=== PATIENT | female | born 1965 | race Caucasian/White ===

== ENCOUNTER 2018-04-30 21:35 | Emergency (ER) | payer OTHER ==
[2018-04-30] MEDS ORDERED: fentaNYL 100 MCG/2 ML INJ IVP ONE (21:45)
[2018-04-30] MEDS ORDERED: ONDANSETRON 4 MG/2 ML VIAL IVP ONE ×2 (21:45→22:45)
[2018-04-30] MEDS ORDERED: NS 1,000 ML IV ONE (21:45)
[2018-04-30] MEDS ORDERED: fentaNYL 100 MCG/2 ML INJ ONE (21:47)
[2018-04-30] MEDS ORDERED: IOPAMIDOL (ISOVUE-300) 100 ML BTL ONE (21:57)
--- NOTE | 2018-04-30 21:59 | EDPHY ---
H & P Stated Complaint: Severe LLQ abd pain. - Personal History Current Tetanus/Diphtheria Vaccine: Yes Current Tetanus Diphtheria and Acellular Pertussis (TDAP): Yes - Medical/Surgical History Hx Asthma: No Hx Chronic Respiratory Disease: No Hx Diabetes: No Hx Cardiac Disease: No Hx Renal Disease: No Hx Cirrhosis: No Hx Alcoholism: No Hx HIV/AIDS: No Hx Splenectomy or Spleen Trauma: No Other PMH: Uterine oblation, . - Social History Smoking Status: Never smoked Time Seen by Provider: 04/30/18 21:38 HPI/ROS: CHIEF COMPLAINT: Abdominal pain HISTORY OF PRESENT ILLNESS: 52-year-old female reports she was in her usual state of good health until approximately the 1 hr ago when she developed severe , crampy right lower quadrant discomfort. Patient states that felt like she needed to have a bowel movement. She did pass a small amount of stool with minimal relief of the discomfort. She is nauseous but has had no vomiting. She presents the emergency department at this time. Patient has had uterine ablation surgery secondary to fibroids but no abdominal surgeries. No history of ulcer disease, pancreatitis, cholecystitis, or kidney stones. Further history review of systems is limited secondary to the patient's clinical condition. REVIEW OF SYSTEMS: Review of systems is unobtainable from this patient because of clinical condition. Patient is quite uncomfortable, painting, and holding her abdomen. PAST MEDICAL HISTORY: Patient denies with the exception of uterine ablation. SOCIAL HISTORY: Here with her family. Nonsmoker. VITAL SIGNS Reviewed by me. GENERAL: Well-developed, well-nourished, uncomfortable, panting, holding her abdomen. HEENT: Atraumatic. Eyes: No icterus, no injection. Mouth: moist mucous membranes. No erythema or lesions. Neck: supple with no adenopathy. LUNGS: Clear to auscultation bilaterally, no wheezes, rhonchi or rales. CARDIAC: Regular rate and rhythm, no rubs, murmurs or gallops. ABDOMEN: Soft, maximal tenderness appears to be focused in the right mid and upper quadrant. Mild left upper quadrant tenderness which the patient thinks might be referred. No distension. No guarding. Positive bowel sounds. BACK: No CVA tenderness. EXTREMITIES: No trauma. No edema. Range of motion is normal throughout. NEURO: Alert and oriented, grossly nonfocal. SKIN: Warm and dry, no rash. PSYCHIATRIC: Normal mentation, no agitation. (Leslie Byrd) Constitutional: Initial Vital Signs Temperature (C) 36.7 C 04/30/18 21:40 Heart Rate 85 04/30/18 21:40 Respiratory Rate 16 04/30/18 21:40 Blood Pressure 168/119 H 04/30/18 21:40 O2 Sat (%) 97 04/30/18 21:40 O2 Delivery Mode Room Air Allergies/Adverse Reactions: latex Allergy (Verified 07/03/13 18:27) Home Medications: Medication Instructions Recorded Miscellaneous Medical Supply [NO 07/03/13 HOME MEDS] Medical Decision Making - Diagnostics Imaging Results: Imaging Impressions Abdomen X-Ray 04/30/18 21:45 Impression: Nonspecific bowel gas pattern. Abdomen CT 04/30/18 21:59 Impression: 1. Small amount of free fluid in the pelvis adjacent to the right ovary with associated cysts measuring up to 3.2 x 1.2 cm and calcification possibly representing a recently ruptured cyst. Recommend follow-up ultrasound imaging. 2. Calcification involving the left ovary from old granulomatous disease. 3. No CT evidence of appendicitis, abscess or bowel obstruction. Findings and recommendations discussed with Emergency Department physician, Leslie Byrd MD at 2250 hour, 04/30/2018. Final report concurs with initial preliminary interpretation. ED Course/Re-evaluation: KUB x-ray was obtained on arrival. This demonstrates a nonspecific bowel gas pattern. No free air or volvulus is noted. Patient IV placed and received fentanyl 75 mcg as well as Zofran IV. Patient received a L of normal saline. Urinalysis is negative for blood, or signs of infection. CT scan of abdomen pelvis was ordered. Reported to me from Dr. Lawanda carlson the is demonstrating no bowel obstruction, no volvulus, normal appendix, no hydronephrosis. Patient appears to have a right ovarian cyst which has ruptured with a enlarged right ovary at 4 cm with a small amount of fluid near the ovary. Of note the left ovary is calcified. Patient was reexamined. She is feeling better after her fentanyl but rates her pain 4/10. She tells me that she has not had a period for number of years although she does have approximately once a year spotting bloody discharge without significant vaginal bleeding. She has not seen a zoo caretaker for approximately 3 years. She tells me she has not had any hormonal testing to confirm a postmenopausal state. Given the fact that the patient sounds postmenopausal, an ultrasound was ordered to further evaluate for complex ovarian mass, ovarian carcinoma, ovarian torsion. Patient received Toradol 15 mg IV. Patient's care was assumed by Dr. Hartmann at 11:15 p.m., awaiting ultrasound. Patient understands the need for the ultrasound also understands that she may need to be admitted to the hospital depending on pain control and ultrasound findings. Patients course also discussed with Dr Lee, OB/ Hospice Office Coordinator. Pending ultrasound results and patients pain control, Dr Lee will see her in followup early next week. (Leslie Byrd) Differential Diagnosis: The differential diagnosis for the patient's abdominal pain was considered including but not limited to ovarian cyst, ovarian torsion, volvulus, bowel obstruction, and appendicitis. (Leslie Byrd) Other Provider: Care assumed at 2300 hr. Case discussed with Dr. Byrd. Patient interviewed and examined. (Ciriol Hartmann) - Data Points Laboratory Results: Laboratory Results 04/30/18 21:50 04/30/18 04/30/18 04/30/18 22:21 21:59 21:50 WBC RBC Hgb Hct MCV MCH MCHC RDW Plt Count MPV Neut % (Auto) Lymph % (Auto) Douglas % (Auto) Eos % (Auto) Baso % (Auto) Nucleat RBC Rel Count Absolute Neuts (auto) Absolute Lymphs (auto) Absolute Monos (auto) Absolute Eos (auto) Absolute Basos (auto) Absolute Nucleated RBC Immature Gran % Immature Gran # POC Sodium 137 mEq/L mEq/L (135-145) POC Potassium 3.7 mEq/L mEq/L (3.3-5.0) POC Chloride 107.0 mEq/L mEq/L (97-110) POC Total CO2 25 mEq/L mEq/L (22-31) POC BUN 15 mg/dL mg/dL (7-23) POC Creatinine 0.8 mg/dL mg/dL (0.6-1.0) POC Glucose 107 mg/dL H mg/dL (70-100) POC Calcium 10.4 mg/dL mg/dL (8.5-10.4) POC Total Bilirubin 0.6 mg/dL mg/dL 0.6 mg/dL mg/dL (0.1-1.4) (0.1-1.4) Total Bilirubin Conjugated Bilirubin Unconjugated Bilirubin POC GGT 30 IU/L IU/L (5-65) POC AST 30 IU/L IU/L 27 IU/L IU/L (14-46) (14-46) AST POC ALT 28 IU/L IU/L 25 IU/L IU/L (9-52) (9-52) ALT POC Alk Phosphatase 49 IU/L IU/L 44 IU/L IU/L (38-126) (38-126) Alkaline Phosphatase POC Total Protein 7.1 g/dL g/dL 7.2 g/dL g/dL (6.3-8.2) (6.3-8.2) Total Protein POC Albumin 3.7 g/dL g/dL 3.5 g/dL g/dL (3.5-5.0) (3.5-5.0) Albumin POC Amylase 44 IU/L IU/L (30-110) Lipase Beta HCG, Qual NEGATIVE 04/30/18 04/30/18 21:50 21:50 WBC 8.97 10^3/uL 10^3/uL (3.80-9.50) RBC 5.08 10^6/uL 10^6/uL (4.18-5.33) Hgb 15.8 g/dL g/dL (12.6-16.3) Hct 44.5 % % (38.0-47.0) MCV 87.6 fL fL (81.5-99.8) MCH 31.1 pg pg (27.9-34.1) MCHC 35.5 g/dL g/dL (32.4-36.7) RDW 13.3 % % (11.5-15.2) Plt Count 207 10^3/uL 10^3/uL (150-400) MPV 11.2 fL fL (8.7-11.7) Neut % (Auto) 50.8 % % (39.3-74.2) Lymph % (Auto) 38.8 % % (15.0-45.0) Douglas % (Auto) 6.4 % % (4.5-13.0) Eos % (Auto) 3.3 % % (0.6-7.6) Baso % (Auto) 0.4 % % (0.3-1.7) Nucleat RBC Rel Count 0.0 % % (0.0-0.2) Absolute Neuts (auto) 4.55 10^3/uL 10^3/uL (1.70-6.50) Absolute Lymphs (auto) 3.48 10^3/uL H 10^3/uL (1.00-3.00) Absolute Monos (auto) 0.57 10^3/uL 10^3/uL (0.30-0.80) Absolute Eos (auto) 0.30 10^3/uL 10^3/uL (0.03-0.40) Absolute Basos (auto) 0.04 10^3/uL 10^3/uL (0.02-0.10) Absolute Nucleated RBC 0.00 10^3/uL 10^3/uL (0-0.01) Immature Gran % 0.3 % % (0.0-1.1) Immature Gran # 0.03 10^3/uL 10^3/uL (0.00-0.10) POC Sodium POC Potassium POC Chloride POC Total CO2 POC BUN POC Creatinine POC Glucose POC Calcium POC Total Bilirubin Total Bilirubin 0.4 mg/dL mg/dL (0.1-1.4) Conjugated Bilirubin 0.2 mg/dL mg/dL (0.0-0.5) Unconjugated Bilirubin 0.2 mg/dL mg/dL (0.0-1.1) POC GGT POC AST AST 19 IU/L IU/L (14-46) POC ALT ALT 38 IU/L IU/L (9-52) POC Alk Phosphatase Alkaline Phosphatase 48 IU/L IU/L (38-126) POC Total Protein Total Protein 7.2 g/dL g/dL (6.3-8.2) POC Albumin Albumin 4.4 g/dL g/dL (3.5-5.0) POC Amylase Lipase 211 IU/L IU/L (23-300) Beta HCG, Qual Medications Given: Discontinued Medications Fentanyl (Sublimaze) 75 mcg IVP EDNOW ONE Stop: 04/30/18 21:46 Last Admin: 04/30/18 21:52 Dose: 75 mcg Hydromorphone HCl (Dilaudid) 0.5 mg IVP EDNOW ONE Stop: 04/30/18 22:44 Last Admin: 04/30/18 22:56 Dose: 0.5 mg Sodium Chloride (Ns) 1,000 mls @ 0 mls/hr IV EDNOW ONE; Wide Open PRN Reason: Protocol Stop: 04/30/18 21:46 Last Admin: 04/30/18 21:50 Dose: 1,000 mls Ketorolac Tromethamine (Toradol) 15 mg IVP EDNOW ONE Stop: 04/30/18 23:09 Last Admin: 04/30/18 23:29 Dose: Not Given Ketorolac Tromethamine (Toradol) 15 mg IVP EDNOW ONE Stop: 04/30/18 23:30 Last Admin: 04/30/18 23:34 Dose: 15 mg Ondansetron HCl (Zofran) 4 mg IVP EDNOW ONE Stop: 04/30/18 21:46 Last Admin: 04/30/18 21:53 Dose: 4 mg Ondansetron HCl (Zofran) 4 mg IVP EDNOW ONE Stop: 04/30/18 22:46 Last Admin: 04/30/18 22:56 Dose: 4 mg Point of Care Test Results: Chemistry 04/30/18 04/30/18 22:21 21:59 POC Sodium 137 mEq/L mEq/L (135-145) POC Potassium 3.7 mEq/L mEq/L (3.3-5.0) POC Chloride 107.0 mEq/L mEq/L (97-110) POC Total CO2 25 mEq/L mEq/L (22-31) POC BUN 15 mg/dL mg/dL (7-23) POC Creatinine 0.8 mg/dL mg/dL (0.6-1.0) POC Glucose 107 mg/dL H mg/dL (70-100) POC Calcium 10.4 mg/dL mg/dL (8.5-10.4) POC Total Bilirubin 0.6 mg/dL mg/dL 0.6 mg/dL mg/dL (0.1-1.4) (0.1-1.4) POC GGT 30 IU/L IU/L (5-65) POC AST 30 IU/L IU/L 27 IU/L IU/L (14-46) (14-46) POC ALT 28 IU/L IU/L 25 IU/L IU/L (9-52) (9-52) POC Alk Phosphatase 49 IU/L IU/L 44 IU/L IU/L (38-126) (38-126) POC Total Protein 7.1 g/dL g/dL 7.2 g/dL g/dL (6.3-8.2) (6.3-8.2) POC Albumin 3.7 g/dL g/dL 3.5 g/dL g/dL (3.5-5.0) (3.5-5.0) POC Amylase 44 IU/L IU/L (30-110) Urine Dip Collection Date 04/30/18 Collection Time 20:06 Specific Miles (1.002-1.030) 1.015 PH (5.0-7.5) 7.5 Leukocytes (Negative) Negative Nitrites (Negative) Negative Protein (Negative) Negative Glucose (Negative) Negative Ketones (Negative) Negative Urobilnogen (0.2-1.0 EU) 0.2 Bilirubin (Negative) Negative Blood (Negative) Negative Departure - Departure Disposition: Home, Routine, Self-Care Clinical Impression: Abdominal pain Qualifiers: Abdominal location: lower abdomen, unspecified Qualified Code(s): R10.30 - Lower abdominal pain, unspecified Condition: Good Instructions: Abdominal Pain (ED) Additional Instructions: There was nothing found on year CT scan or ultrasound or labs to explain your abdominal pain. This is actually quite common. Usually these cases continued to subside on their own. Sometimes there is something that just has not shown up yet. Is important that she return if you start experiencing: - worsening pain, -fever, -or having difficulty taking food fluids. Your allowed to take Tylenol as soon as 2 or 3 in the morning if you so choose. Only do so if the pain is keeping awake. You next dose of ibuprofen would not be due until 6:00 a.m. The dose is 600 mg three times daily as needed for the pain. Further, your allowed to take a single, one time dose of of Vicodin as soon as 4 in the morning should you feel that Tylenol is not sufficient for the pain. However, you're not allowed to take any more Vicodin than that 1 dose. Tomorrow, if you find that the pain is not being controlled well with Tylenol or ibuprofen you will need to return for another re-examination. Furthermore if you have difficulty taking your morning meal tomorrow or fluids, you should return. Recheck with family doctor on Thursday. End User Support Specialist referral is given. Referrals: Patient,NotPresent [Primary Care Provider] - As per Instructions Ev Lee DO [Doctor of Osteopathy] - 2-3 days without fail
[2018-04-30] MEDS ORDERED: HYDROmorphONE/DILAUDID 2 MG/ML INJ IVP ONE (22:43)
[2018-04-30] MEDS ORDERED: ONDANSETRON 4 MG/2 ML VIAL ONE (22:46)
[2018-04-30] MEDS ORDERED: KETOROLAC 15 MG/1 ML SDV IVP ONE (23:08)
[2018-04-30] MEDS ORDERED: KETOROLAC 30 MG/1 ML SDV ONE (23:27)
[2018-04-30] MEDS ORDERED: KETOROLAC 30 MG/1 ML SDV IVP ONE (23:29)
[2018-04-30 23:42] LABS: PLATELET COUNT 207 10^3/uL (150-400)
[2018-05-01] MEDS ORDERED: HYDROCOD/APAP 5/325 PREPACK#6 BTL TAKEHOME ONE (00:57)
[2018-05-01] MEDS ORDERED: HYDROCODONE/APAP 5/325 TAB PO ONE (01:00)
[2018-05-01 01:11] VITALS: BP 141/77
== END 2018-05-01 01:19 | disposition home or self-care (01) ==
LOC: CED 21:35
DX: R10.31 Right lower quadrant pain (principal); E86.9 Volume depletion, unspecified; Z91.040 Latex allergy status
CPT/HCPCS: 74018-PO; 74177-PO; 76856-PO; 80053-PO; 80076-PO; 82150-PO; 96374; J1170; J1885; J2405; J3010; Q9967